=== PATIENT | female | born 1985 | race Caucasian/White ===

== ENCOUNTER → 2016-12-25 | Outpatient (CLI) | payer OTHER ==
--- NOTE | 2016-12-25 14:05 | XR ---
EXAMINATION TYPE: XR cervical spine comp DATE OF EXAM: 12/25/2016 12:28 PM COMPARISON: NONE HISTORY: Cervical disc disease tingling TECHNIQUE: 5 view cervical spine FINDINGS: Minimal disc space narrowing C5-6 C6-7 and C7-T1 is present. Posterior endplate spurring is present C5-6 C6-7. Posterior spinal lamellar line is intact. Tip of the odontoid is some limitation due to overlying occiput. Foramen are patent. Prevertebral space is normal. IMPRESSION: 1. Degenerative disc changes within the lower cervical spine
== END ==
LOC: RADXRMAIN 12:08
PROVIDERS: ATTEND Physical Medicine & Rehabilitation
DX: M50.31 Other cervical disc degeneration, high cervical region (principal)
CPT/HCPCS: 72050

== ENCOUNTER 2017-04-11 18:47 | Emergency (ER) | payer OTHER ==
--- NOTE | 2017-04-11 19:35 | ED ---
Female Urogenital HPI - General Chief complaint: Vaginal Bleeding Stated complaint: vaginal bleeding Time Seen by Provider: 04/11/17 19:03 Source: patient, RN notes reviewed Mode of arrival: ambulatory Limitations: no limitations - History of Present Illness Initial comments: Patient is a 31-year-old female since emergency room for evaluation of vaginal bleeding. Patient states she had a sexual intercourse with a new partner about a week ago and afterwards began bleeding. Patient states she's had some pain in her vaginal area afterwards. Patient states she had sexual intercourse again yesterday and began bleeding. Patient states during the day today while doing laundry she had a large cruz of blood in her underwear. Patient states she's not sure if she is on her period or if she tore something in her vaginal area. Patient denies pain or burning during urination or trouble urinating. Patient states she has a history of chlamydia and gonorrhea when she was younger that was treated. Patient denies abdominal pain. Patient denies nausea or vomiting. Patient denies fevers or chills. Patient denies headache or dizziness. Patient states she is here to be checked to make sure there is nothing torn in her vaginal area. Patient denies any other symptoms or complaints. - Related Data Home Medications Medication Instructions Recorded Confirmed HYDROcodone/APAP 10-325MG [[place] 1 tab PO Q8H PRN 04/11/17 04/11/17 10-325] Allergies Allergy/AdvReac Type Severity Reaction Status Date / Time No Known Allergies Allergy Verified 04/11/17 19:15 Review of Systems ROS Statement: Those systems with pertinent positive or pertinent negative responses have been documented in the HPI. ROS Other: All systems not noted in ROS Statement are negative. Past Medical History Additional Past Medical History / Comment(s): Patient has a history of low back pain which she takes [place] for. For her obstetrical history she's had 7 pregnancies. The first 4 pregnancies were normal vaginal deliveries. The fifth was a 17 week demise. The sixth was a missed with a D&C. This is her seventh . The patient has had good care with me since 10 weeks gestation. She has been on Lortab were [place] since the beginning of her . She has been told several times to come off this medication and has not. Her blood work is blood type B positive, HIV nonreactive, rubella immune, hepatitis B negative, RPR nonreactive. She had a normal anatomy ultrasound at 19 weeks. She is GBS negative. History of Any Multi-Drug Resistant Organisms: None Reported Past Surgical History: Appendectomy, Cholecystectomy Additional Past Surgical History / Comment(s): She's had a cholecystectomy, appendectomy, and a D&C. Past Anesthesia/Blood Transfusion Reactions: No Reported Reaction Past Psychological History: No Psychological Hx Reported Smoking Status: Current every day smoker Past Alcohol Use History: None Reported Past Drug Use History: Opiates - Past Family History Father Family Medical History: Cancer, Hypertension, Liver Disease, Prostate Disorder Mother Family Medical History: Deep Vein Thrombosis (DVT), Fibromyalgia, Rheumatoid Arthritis (RA) General Exam - General Exam Comments Initial Comments: Sitting in exam room, no distress. Limitations: no limitations General appearance: alert, in no apparent distress Head exam: Present: atraumatic, normocephalic, normal inspection Eye exam: Present: normal appearance ENT exam: Present: normal exam Neck exam: Present: normal inspection Respiratory exam: Present: normal lung sounds bilaterally. Absent: respiratory distress Cardiovascular Exam: Present: regular rate, normal rhythm, normal heart sounds GI/Abdominal exam: Present: soft, normal bowel sounds. Absent: distended, tenderness, guarding, rebound, rigid External exam: Present: normal external exam Speculum exam: Present: vaginal bleeding (from cervix). Absent: laceration By manual exam: Present: normal by manual exam Extremities exam: Present: normal inspection Back exam: Present: normal inspection Neurological exam: Present: alert, oriented X3, CN II-XII intact, normal gait Psychiatric exam: Present: normal affect, normal mood Skin exam: Present: warm, dry, intact, normal color. Absent: rash Course Vital Signs 04/11/17 04/11/17 18:53 20:57 Temperature 98.1 F 98 F Pulse Rate 90 70 Respiratory 20 16 Rate Blood Pressure 136/77 119/61 O2 Sat by Pulse 99 97 Oximetry Medical Decision Making - Medical Decision Making Patient is a 31-year-old female presents to the emergency room for evaluation of vaginal bleeding. No tears noted during pelvic exam. There was blood noted from the cervical os. It appears patient is menstruating. test negative. Patient advised to follow-up with [facility]. Patient refused STD testing. Return parameters discussed. Case discussed Dr. Bundy. - Lab Data Lab Results 04/11/17 04/11/17 Range/Units 20:12 20:12 Urine Color Yellow Urine Appearance Clear (Clear) Urine pH 7.0 (5.0-8.0) Ur Specific [place] 1.028 (1.001-1.035) Urine Protein 1+ H (Negative) Urine Glucose (UA) Negative (Negative) Urine Ketones Trace H (Negative) Urine Blood Moderate H (Negative) Urine Nitrite Negative (Negative) Urine Bilirubin Negative (Negative) Urine Urobilinogen 3.0 (<2.0) mg/dL Ur Leukocyte Esterase Negative (Negative) Urine RBC 147 H (0-5) /hpf Ur Squamous Epith Cells 4 (0-4) /hpf Urine Mucus Occasional H (None) /hpf Urine HCG, Qual Not Detected (Not Detectd) Disposition Clinical Impression: Normal menstrual period Disposition: HOME SELF-CARE Condition: Good Instructions: Menstruation (ED) Additional Instructions: Please follow up with primary care provider or [facility] in 1-2 days. If any new symptom arises or symptoms worsen, return to ER as soon as possible. Referrals: None,Stated [Primary Care Provider] - 1-2 days Time of Disposition: 20:47
[2017-04-11 20:26] LABS: Appearance,Urine Clear (Clear); Bilirubin,Urine Negative (Negative); Glucose,Urine (UA) Negative (Negative); Ketones,Urine Trace (Negative); Leukocyte Esterase,Urine Negative (Negative); Mucus,Urine Occasional /hpf; Nitrite,Urine Negative (Negative); Particle Count 6377; Protein,Urine 1+ (Negative); RBC,Urine 147 /hpf (0-5); Specific Gravity,Urine 1.028 (1.001-1.035); Squamous Epithelial Cell,Urine 4 /hpf (0-4); UA Billing (MACRO vs. MICRO) MICRO
[2017-04-11 20:58] VITALS: BP 119/61; PULSE 70; RESP 16; TEMP 98
== END 2017-04-11 21:00 | disposition home or self-care (01) ==
LOC: EC 18:47
DX: N93.8 Other specified abnormal uterine and vaginal bleeding (principal); F17.200 Nicotine dependence, unspecified, uncomplicated; Z32.02 Encounter for pregnancy test, result negative; Z90.49 Acquired absence of other specified parts of digestive tract
CPT/HCPCS: 81001; 81025; 87086; 99283

== ENCOUNTER 2022-07-09 20:28 | Emergency (ER) | payer OTHER ==
[2022-07-09] MEDS ORDERED: SODIUM CHLORIDE 0.9% 1,000 ML IV STA (21:22)
--- NOTE | 2022-07-09 21:22 | ED ---
General Adult HPI - General Source: patient, RN notes reviewed Mode of arrival: ambulatory Limitations: no limitations <Dianelys Anne - Last Filed: 07/09/22 23:02> <Faustino Levy - Last Filed: 07/09/22 23:36> - General Chief complaint: Abdominal Pain Stated complaint: IBS flare/blood Time Seen by Provider: 07/09/22 21:05 - History of Present Illness Initial comments: Patient is a 37 year old female presenting to the emergency room with multiple complaints that initially began as pain in her right lower quadrant radiating posteriorly into the flank consistent with previous IBS flares. She r eports that she took a dose of Imodium and her rectal/anal spasms resolved with medication but her pain persisted. She reports that since that time the pain has progressed to be disuse throughout her entire abdomen including the upper abdomen with some associated nausea and vomiting. She reports one episode of bilious emesis with a clot-like substance but no further episodes of bloody emesis or coffee-ground emesis. She is complaining of a dual-lead menstrual cycle by 6 days and reports that today she began having dark brown discharged with tissue-like substances that time. She denies any concerns for STDs. She denies any chest pain, shortness of breath, dysuria, urinary frequency, headaches, dizziness, fevers or chills. She is past medical history in addition to her mixed IBS of chronic back pain, and fibromyalgia. (Dianelys Anne) - Related Data Home Medications Medication Instructions Recorded Confirmed HYDROcodone/APAP 10-325MG [[place] 1 tab PO Q8H PRN 04/11/17 04/11/17 10-325] Allergies Allergy/AdvReac Type Severity Reaction Status Date / Time No Known Allergies Allergy Verified 07/09/22 20:53 Review of Systems ROS Other: All systems not noted in ROS Statement are negative. <Dianelys Anne - Last Filed: 07/09/22 23:02> ROS Other: All systems not noted in ROS Statement are negative. <Faustino Levy - Last Filed: 07/09/22 23:36> ROS Statement: Those systems with pertinent positive or pertinent negative responses have been documented in the HPI. Past Medical History History of Any Multi-Drug Resistant Organisms: None Reported Past Surgical History: Appendectomy, Cholecystectomy Additional Past Surgical History / Comment(s): She's had a cholecystectomy, appendectomy, and a D&C. Past Anesthesia/Blood Transfusion Reactions: No Reported Reaction Past Psychological History: No Psychological Hx Reported Smoking Status: Current every day smoker Past Alcohol Use History: None Reported Past Drug Use History: Opiates - Past Family History Father Family Medical History: Cancer, Hypertension, Liver Disease, Prostate Disorder Mother Family Medical History: Deep Vein Thrombosis (DVT), Fibromyalgia, Rheumatoid Arthritis (RA) <Dianelys Anne - Last Filed: 07/09/22 23:02> General Exam General appearance: alert, in no apparent distress Head exam: Present: atraumatic, normocephalic, normal inspection Eye exam: Present: normal appearance, PERRL, EOMI. Absent: scleral icterus, conjunctival injection, periorbital swelling ENT exam: Present: normal exam, mucous membranes moist Neck exam: Present: normal inspection, full ROM. Absent: lymphadenopathy Respiratory exam: Present: normal lung sounds bilaterally. Absent: respiratory distress, wheezes, rales, rhonchi, stridor Cardiovascular Exam: Present: regular rate, normal rhythm, normal heart sounds. Absent: systolic murmur, diastolic murmur, rubs, gallop, clicks GI/Abdominal exam: Present: soft, tenderness (mild diffuse), normal bowel sounds. Absent: distended, guarding, rebound, rigid Rectal exam: Present: deferred Extremities exam: Present: normal inspection, full ROM. Absent: pedal edema, joint swelling Back exam: Present: normal inspection, full ROM. Absent: CVA tenderness (R), CVA tenderness (L) Neurological exam: Present: alert, oriented X3, CN II-XII intact Psychiatric exam: Present: normal affect, normal mood Skin exam: Present: warm, dry, intact, normal color. Absent: rash <Dianelys Anne - Last Filed: 07/09/22 23:02> General appearance: alert, in no apparent distress Head exam: Present: atraumatic, normocephalic, normal inspection Eye exam: Present: normal appearance, PERRL, EOMI. Absent: scleral icterus, conjunctival injection, periorbital swelling ENT exam: Present: normal exam, mucous membranes moist Neck exam: Present: normal inspection. Absent: tenderness, meningismus, lymphadenopathy Respiratory exam: Present: normal lung sounds bilaterally. Absent: respiratory distress, wheezes, rales, rhonchi, stridor Cardiovascular Exam: Present: regular rate, normal rhythm, normal heart sounds. Absent: systolic murmur, diastolic murmur, rubs, gallop, clicks GI/Abdominal exam: Present: soft, normal bowel sounds. Absent: distended, tenderness, guarding, rebound, rigid Extremities exam: Present: normal inspection, full ROM, normal capillary refill. Absent: tenderness, pedal edema, joint swelling, calf tenderness Back exam: Present: normal inspection Neurological exam: Present: alert, oriented X3, CN II-XII intact Psychiatric exam: Present: normal affect, normal mood Skin exam: Present: warm, dry, intact, normal color. Absent: rash <Faustino Levy - Last Filed: 07/09/22 23:36> Course <Faustino Levy - Last Filed: 07/09/22 23:36> Vital Signs 07/09/22 20:49 Temperature 98.2 F Pulse Rate 93 Respiratory 20 Rate Blood Pressure 180/112 O2 Sat by Pulse 100 Oximetry - Reevaluation(s) Reevaluation #1: 07/09/22 23:35 medical records reviewed (Faustino Levy) Reevaluation #2: 07/09/22 23:35 Patient informed results questions answered (Faustino Levy) Reevaluation #3: 07/09/22 23:35 Pain is resolved (Faustino Levy) Medical Decision Making - Lab Data Result diagrams: 07/09/22 21:25 07/09/22 21:25 <Dianelys Anne - Last Filed: 07/09/22 23:02> - Lab Data Result diagrams: 07/09/22 21:25 07/09/22 21:25 - Radiology Data Radiology results: report reviewed (CT of the abdomen and pelvis negative for acute disease), image reviewed <Faustino Levy - Last Filed: 07/09/22 23:36> - Medical Decision Making 37-year-old female presenting to the emergency room with complaints of upper and lower abdominal pain along with emesis and dysmenorrhea with missed menstrual cycle and now with dark discharge. Will obtain CBC, CMP, amylase lipase along with test and urinalysis. Will give IV fluid bolus and if test negative will obtain CT of the abdomen and pelvis. Labs reveal slightly elevated alk phos and marginally elevated leukocytosis. Urinalysis with significant amount of blood causing false results regarding urinary tract infection. Awaiting computed tomography scan. Report given to Dr. Ruiz for further evaluation and dispo. (Dianelys Anne) 37 female nonspecific abdominal pain. Patient can be discharged home, no acute cause of abdominal noted. (Faustino Levy) - Lab Data Lab Results 07/09/22 07/09/22 07/09/22 Range/Units 21:25 21:25 21:25 WBC 11.2 H (3.8-10.6) k/uL RBC 4.40 (3.80-5.40) m/uL Hgb 12.8 (11.4-16.0) gm/dL Hct 37.6 (34.0-46.0) % MCV 85.5 (80.0-100.0) fL MCH 29.1 (25.0-35.0) pg MCHC 34.0 (31.0-37.0) g/dL RDW 13.3 (11.5-15.5) % Plt Count 330 (150-450) k/uL MPV 7.1 Neutrophils % 68 % Lymphocytes % 25 % Monocytes % 4 % Eosinophils % 2 % Basophils % 0 % Neutrophils # 7.6 (1.3-7.7) k/uL Lymphocytes # 2.8 (1.0-4.8) k/uL Monocytes # 0.5 (0-1.0) k/uL Eosinophils # 0.2 (0-0.7) k/uL Basophils # 0.1 (0-0.2) k/uL Sodium 139 (137-145) mmol/L Potassium 3.5 (3.5-5.1) mmol/L Chloride 104 (98-107) mmol/L Carbon Dioxide 23 (22-30) mmol/L Anion Gap 12 mmol/L BUN 12 (7-17) mg/dL Creatinine 0.99 (0.52-1.04) mg/dL Est GFR (CKD-EPI)AfAm 83 (>60 ml/min/1.73 sqM) Est GFR (CKD-EPI)NonAf 72 (>60 ml/min/1.73 sqM) Glucose 106 H (74-99) mg/dL Calcium 9.7 (8.4-10.2) mg/dL Total Bilirubin 0.5 (0.2-1.3) mg/dL AST 16 (14-36) U/L ALT 17 (4-34) U/L Alkaline Phosphatase 132 H (38-126) U/L Total Protein 8.0 (6.3-8.2) g/dL Albumin 4.8 (3.5-5.0) g/dL Amylase 65 (30-110) U/L Lipase 67 (23-300) U/L HCG, Qual Not Detected Urine Color Urine Appearance (Clear) Urine pH (5.0-8.0) Ur Specific [place] (1.001-1.035) Urine Protein (Negative) Urine Glucose (UA) (Negative) Urine Ketones (Negative) Urine Blood (Negative) Urine Nitrite (Negative) Urine Bilirubin (Negative) Urine Urobilinogen (<2.0) mg/dL Ur Leukocyte Esterase (Negative) Urine RBC (0-5) /hpf Urine WBC (0-5) /hpf Ur Squamous Epith Cells (0-4) /hpf Urine Bacteria (None) /hpf Urine Mucus (None) /hpf 07/09/22 Range/Units 21:55 WBC (3.8-10.6) k/uL RBC (3.80-5.40) m/uL Hgb (11.4-16.0) gm/dL Hct (34.0-46.0) % MCV (80.0-100.0) fL MCH (25.0-35.0) pg MCHC (31.0-37.0) g/dL RDW (11.5-15.5) % Plt Count (150-450) k/uL MPV Neutrophils % % Lymphocytes % % Monocytes % % Eosinophils % % Basophils % % Neutrophils # (1.3-7.7) k/uL Lymphocytes # (1.0-4.8) k/uL Monocytes # (0-1.0) k/uL Eosinophils # (0-0.7) k/uL Basophils # (0-0.2) k/uL Sodium (137-145) mmol/L Potassium (3.5-5.1) mmol/L Chloride (98-107) mmol/L Carbon Dioxide (22-30) mmol/L Anion Gap mmol/L BUN (7-17) mg/dL Creatinine (0.52-1.04) mg/dL Est GFR (CKD-EPI)AfAm (>60 ml/min/1.73 sqM) Est GFR (CKD-EPI)NonAf (>60 ml/min/1.73 sqM) Glucose (74-99) mg/dL Calcium (8.4-10.2) mg/dL Total Bilirubin (0.2-1.3) mg/dL AST (14-36) U/L ALT (4-34) U/L Alkaline Phosphatase (38-126) U/L Total Protein (6.3-8.2) g/dL Albumin (3.5-5.0) g/dL Amylase (30-110) U/L Lipase (23-300) U/L HCG, Qual Urine Color Yellow Urine Appearance Cloudy H (Clear) Urine pH 5.5 (5.0-8.0) Ur Specific [place] 1.026 (1.001-1.035) Urine Protein 1+ H (Negative) Urine Glucose (UA) Negative (Negative) Urine Ketones Negative (Negative) Urine Blood Large H (Negative) Urine Nitrite Negative (Negative) Urine Bilirubin Negative (Negative) Urine Urobilinogen <2.0 (<2.0) mg/dL Ur Leukocyte Esterase Large H (Negative) Urine RBC 24 H (0-5) /hpf Urine WBC 60 H (0-5) /hpf Ur Squamous Epith Cells 6 H (0-4) /hpf Urine Bacteria Rare H (None) /hpf Urine Mucus Few H (None) /hpf Disposition <Dianelys Anne - Last Filed: 07/09/22 23:02> Is patient prescribed a controlled substance at d/c from ED?: No Time of Disposition: 23:35 <Faustino Levy - Last Filed: 07/09/22 23:36> Clinical Impression: Abdominal pain Disposition: HOME SELF-CARE Condition: Fair Instructions (If sedation given, give patient instructions): Abdominal Pain (ED) Referrals: None,Stated [Primary Care Provider] - 1-2 days
[2022-07-09 21:35] LABS: Basophils # (A) 0.1 k/uL (0-0.2); Basophils % (A) 0 %; Eosinophils # (A) 0.2 k/uL (0-0.7); Eosinophils % (A) 2 %; HCT 37.6 % (34.0-46.0); HGB 12.8 gm/dL (11.4-16.0); Lymphocytes # (A) 2.8 k/uL (1.0-4.8); Lymphocytes % (A) 25 %; MCH 29.1 pg (25.0-35.0); MCV 85.5 fL (80.0-100.0); Mean Platelet Volume 7.1; Monocytes # (A) 0.5 k/uL (0-1.0); Monocytes % (A) 4 %; Neutrophils # (A) 7.6 k/uL (1.3-7.7); Neutrophils % (A) 68 %; Platelet Count 330 k/uL (150-450); RDW 13.3 % (11.5-15.5); WBC 11.2 k/uL (3.8-10.6)
[2022-07-09 21:56] LABS: Albumin 4.8 g/dL (3.5-5.0); Calcium 9.7 mg/dL (8.4-10.2); Potassium 3.5 mmol/L (3.5-5.1); Total Bilirubin 0.5 mg/dL (0.2-1.3)
[2022-07-09 22:19] LABS: Appearance,Urine Cloudy (Clear); Bacteria,Urine Rare /hpf; Bilirubin,Urine Negative (Negative); Blood,Urine Large (Negative); Color,Urine Yellow; Glucose,Urine (UA) Negative (Negative); Ketones,Urine Negative (Negative); Leukocyte Esterase,Urine Large (Negative); Mucus,Urine Few /hpf; Nitrite,Urine Negative (Negative); PH, Urine 5.5 (5.0-8.0); Protein,Urine 1+ (Negative); RBC,Urine 24 /hpf (0-5); Specific Gravity,Urine 1.026 (1.001-1.035); Squamous Epithelial Cell,Urine 6 /hpf (0-4); Urobilinogen,Urine <2.0 mg/dL (<2.0); WBC,Urine 60 /hpf (0-5)
--- NOTE | 2022-07-09 23:12 | CT ---
EXAMINATION TYPE: CT abdomen pelvis wo con DATE OF EXAM: 07/09/2022 COMPARISON: 08/30/2012 HISTORY: Abdominal pain CT DLP: 793.4 mGycm Automated exposure control for dose reduction was used. Images obtained from the diaphragm to the floor the pelvis with no contrast. There is minimal subsegmental atelectasis right lung base. Heart size is normal. No pericardial effus ion. No pleural effusion. There are clips from cholecystectomy. Liver and spleen are intact. No evide nce of pancreatic mass. The stomach is intact. There is no adrenal mass. Kidneys show normal size and contour. No hydronephrosis. Ureters are not di lated. No retroperitoneal adenopathy. There is 3 x 2 cm fat-containing umbilical hernia. The bladder distends smoothly. No inguinal hernia. Uterus is intact. No evidence of a pelvic mass. Uterus retrove rted. Appendix is not seen. No sign thickened appendix. Small bowel pattern is normal. Terminal ileum appears normal. There is no mesenteric edema. No ascites or free air. No sign of a bowel obstruction . There is vacuum disc at L4-5 and L5-S1. Lumbar vertebrae have normal alignment. No compression fractu re. The bony pelvis is intact. The hip joints are intact. IMPRESSION: No acute abnormality in the abdomen pelvis. Appendix not seen. Minimal subsegmental atelectasis right lung base. No adverse change compared to old exam.
[2022-07-09 23:39] VITALS: BP 145/85; PULSE 68; RESP 16; TEMP 98.1
== END 2022-07-09 23:58 | disposition home or self-care (01) ==
LOC: EC 20:28
DX: K58.1 Irritable bowel syndrome with constipation (principal); F17.200 Nicotine dependence, unspecified, uncomplicated
CPT/HCPCS: 36415; 74176; 80053; 81001; 82150; 83690; 84703; 85025; 87086; 96360; 96361; 99284

== ENCOUNTER 2024-04-27 11:29 | Emergency (ER) | payer OTHER ==
--- NOTE | 2024-05-27 18:33 | US ---
Patient Ceci Ramirez ID [id number] Order # EXAMINATION TYPE: US pelvic complete DATE OF EXAM: 04/27/2024 COMPARISON: No comparison available on downtime PACS. CLINICAL INDICATION: Bleeding following intercourse TECHNIQUE: Transvaginal (TV). Date of LMP: EXAM MEASUREMENTS: Uterus: 8.1 x 5.3 x 5.8 cm Endometrial Stripe: 0.398 cm Right Ovary: 4.0 x 1.8 x 3.9 cm follicles are present. Left Ovary: 3.8 x 2.3. Follicles are present. 1. Uterus: Normal nabothian cysts within the cervix. 2. Endometrium: Normal 3. Right Ovary: Normal 4. Left Ovary: Normal Spectral, color and waveform doppler imaging shows good arterial and venous flow within the ovaries ; there is no evidence for ovarian torsion. 5. Bilateral Adnexa: Some mild hydrosalpinx may be present bilaterally. Structures are hypoechoic po sterior to the uterus and adnexa 6. Posterior cul-de-sac: No free fluid IMPRESSION: 1. Some hydrosalpinx may be present. Pelvic ultrasound otherwise appears unremarkable.
== END 2024-04-27 16:20 | disposition home or self-care (01) ==
LOC: EC 11:29 → EDSTATUS 11:48 → EC 16:20
DX: N93.9 Abnormal uterine and vaginal bleeding, unspecified (principal)
CPT/HCPCS: 76830; 93975; 99284

== ENCOUNTER 2024-12-19 08:08 | Emergency (ER) | payer OTHER ==
[2024-12-19 08:15] VITALS: BP 135/89; PULSE 89; RESP 18; TEMP 97.8
--- NOTE | 2024-12-19 08:36 | ED ---
Abdominal Pain HPI - General Chief Complaint: Urogenital Stated Complaint: abd/low back pain Time Seen by Provider: 12/19/24 08:16 Source: patient, RN notes reviewed Mode of arrival: ambulatory Limitations: no limitations - History of Present Illness Initial Comments: This is a 39-year-old female who presents to the emergency department for back pain and abdominal pain. Patient states that a month ago she had pain and pressure in her lower back and lower abdomen. She went to urgent care and was diagnosed with a UTI. States that she finished the antibiotics and symptoms seemed to improve. However, when she started her period the symptoms returned and have been present since. States that this is more of an intermittent discomfort and pressure than stephan pain. Denies any nausea/vomiting or urinary symptoms. Denies any fevers/chills. MD Complaint: abdominal pain - Related Data Previous Rx's Medication Instructions Recorded Ibuprofen [Motrin] 800 mg PO Q8H PRN #30 tab 12/19/24 Allergies Allergy/AdvReac Type Severity Reaction Status Date / Time No Known Allergies Allergy Verified 12/19/24 10:08 Review of Systems ROS Statement: Those systems with pertinent positive or pertinent negative responses have been documented in the HPI. ROS Other: All systems not noted in ROS Statement are negative. Past Medical History Additional Past Medical History / Comment(s): Patient has a history of low back pain which she takes [place] for. For her obstetrical history she's had 7 pregnancies. The first 4 pregnancies were normal vaginal deliveries. The fifth was a 17 week demise. The sixth was a missed with a D&C. This is her seventh . The patient has had good care with me since 10 weeks gestation. She has been on Lortab were [place] since the beginning of her . She has been told several times to come off this medication and has not. Her blood work is blood type B positive, HIV nonreactive, rubella immune, hepatitis B negative, RPR nonreactive. She had a normal anatomy ultrasound at 19 weeks. She is GBS negative. History of Any Multi-Drug Resistant Organisms: None Reported Past Surgical History: Appendectomy, Cholecystectomy Additional Past Surgical History / Comment(s): She's had a cholecystectomy, appendectomy, and a D&C. Past Anesthesia/Blood Transfusion Reactions: No Reported Reaction Past Psychological History: No Psychological Hx Reported Smoking Status: Current every day smoker Past Alcohol Use History: None Reported Past Drug Use History: Opiates - Past Family History Father Family Medical History: Cancer, Hypertension, Liver Disease, Prostate Disorder Mother Family Medical History: Deep Vein Thrombosis (DVT), Fibromyalgia, Rheumatoid Arthritis (RA) General Exam Limitations: no limitations General appearance: alert, in no apparent distress Head exam: Present: atraumatic, normocephalic, normal inspection Respiratory exam: Present: normal lung sounds bilaterally. Absent: respiratory distress, wheezes, rales, rhonchi, stridor Cardiovascular Exam: Present: regular rate, normal rhythm GI/Abdominal exam: Present: soft, normal bowel sounds. Absent: distended, tenderness, guarding, rebound, rigid Back exam: Absent: tenderness Neurological exam: Present: alert, oriented X3, CN II-XII intact Psychiatric exam: Present: normal affect, normal mood Skin exam: Present: warm, dry, intact, normal color. Absent: rash Course Vital Signs 12/19/24 08:12 Temperature 97.8 F Pulse Rate 89 Respiratory 18 Rate Blood Pressure 135/89 O2 Sat by Pulse 100 Oximetry Medical Decision Making - Medical Decision Making This is a 39 year old female who presents to the emergency department for back pain and abdominal pain. Was pt. sent in by a medical professional or institution? @ -No Did you speak to anyone other than the patient for history? @ -No Did you review nursing and triage notes? @ -Yes, and I agree, it is accurate with regards to the patient's symptoms. Were old charts reviewed? @ -No Differential Diagnosis? @ -Differential Back Pain: Strain, zoster, cauda equina syndrome, epidural abscess, vertebral osteomyeliti s, discitis, fracture, subluxation, disc herniation, DJD, spinal stenosis, dissection, AAA, pancreatitis, peptic ulcer disease, pyelonephritis, kidney stone, this is not meant to be an all-inclusive list. EKG interpreted by me (3pts min.)? @ -Not obtained X-rays interpreted by me (1pt min.)? @ -Not obtained CT interpreted by me (1pt min.)? @ -CT scan of the abdomen and pelvis obtained. My interpretation identifies no bowel wall thickening or free air. U/S interpreted by me (1pt. min.)? @ -Transvaginal ultrasound obtained. My interpretation identifies no ovarian torsion. What testing was considered but not performed? (CT, X-rays, U/S, labs)? Why? @ -None What meds were considered but not given? Why? @ -None Did you discuss the management of the patient with other professionals? @ -No Did you reconcile home meds? @ -No Was smoking cessation discussed for >3mins.? @ -I discussed smoking cessation for greater than 3 minutes. The risk of smoking were discussed with the patient including but not limited to risks of cancer, stroke, coronary artery disease and COPD. Also discussed with patient were multiple methods of quitting smoking. Lastly we discussed the financial cost of smoking. Was critical care preformed (if so, how long)? @ -No Were there social determinants of health that impacted care today? How? (Homelessness, low income, unemployed, alcoholism, drug addiction, transportation, low edu. Level, literacy, decrease access to med. care, long-term, rehab)? @ -No Was there de-escalation of care discussed even if they declined? (Discuss DNR or withdrawal of care, Hospice)? @ -No What co-morbidities impacted this encounter? (DM, HTN, Smoking, COPD, CAD, Cancer, CVA, Hep., AIDS, mental health diagnosis, sleep apnea, morbid obesity)? @ -Smoking Was patient admitted / discharged? @ -Discharged. Lab work unremarkable. Urinalysis contaminated but not suggestive of infection. CT scan of the abdomen and pelvis demonstrates a bulky uterus with 2 cysts on the left ovary. Additional workup with ultrasound is re commended. Transvaginal ultrasound obtained demonstrating a left ovarian cyst with some internal debris possibly representing an involuting follicle/hemorrhagic follicle. Findings reviewed with the patient. Advised that she needs to follow-up with [facility] and information for follow-up was provided. Ibuprofen prescribed for pain control. Patient discharged home in stable condition. Case discussed with ED attending Dr. Penny. Return precautions reviewed in depth, the patient is instructed to return to the emergency department with any new, worsening, or concerning symptoms. Patient verbalized understanding. Undiagnosed new problem with uncertain prognosis? @ -None Drug Therapy requiring intensive monitoring for toxicity (Heparin, Nitro, Insuli n, Cardizem)? @ -None Were any procedures done? @ -None Diagnosis/symptom? @ -Abdominal pain, back pain, left sided ovarian cysts Acute, or Chronic, or Acute on Chronic? @ -Acute Uncomplicated (without systemic symptoms) or Complicated (systemic symptoms)? @ -Uncomplicated Side effects of treatment? @ -None Exacerbation, Progression, or Severe Exacerbation] @ -Not applicable Poses a threat to life or bodily function? @ -No - Lab Data Result diagrams: 12/19/24 08:39 12/19/24 08:39 Lab Results 12/19/24 12/19/24 12/19/24 Range/Units 08:39 08:39 08:39 WBC 9.70 (4.50-10.00) 10*3/uL RBC 4.74 (4.10-5.20) 10*6/uL Hgb 13.8 (12.0-15.0) g/dL Hct 40.9 (37.2-46.3) % MCV 86.3 (80.0-97.0) fL MCH 29.1 (27.0-32.0) pg MCHC 33.7 (32.0-37.0) g/dL Plt Count 291 (140-440) 10*3/uL MPV 8.8 L (9.5-12.2) fL Immature Gran % (Auto) 0.6 % Neutrophils % 59.9 % Lymphocytes % 29.7 % Monocytes % 6.8 % Eosinophils % 2.6 % Basophils % 0.4 % Immature Gran # 0.06 H (0.00-0.04) 10*3/uL Neutrophils # 5.81 (1.80-7.70) 10*3/uL Lymphocytes # 2.88 (0.90-5.00) 10*3/uL Monocytes # 0.66 (0.20-1.00) 10*3/uL Eosinophils # 0.25 (0.04-0.35) 10*3/uL Basophils # 0.04 (0.00-0.10) 10*3/uL Sodium 136 L (137-145) mmol/L Potassium 4.3 (3.5-5.1) mmol/L Chloride 101 (98-107) mmol/L Carbon Dioxide 29 (22-30) mmol/L Anion Gap 6 mmol/L BUN 14 (7-17) mg/dL Creatinine 0.85 (0.52-1.04) mg/dL Est GFR (CKD-EPI)AfAm >90 (>60 ml/min/1.73 sqM) Est GFR (CKD-EPI)NonAf 86 (>60 ml/min/1.73 sqM) Glucose 107 H (74-99) mg/dL Plasma Lactic Acid William 1.5 (0.7-2.0) mmol/L Calcium 9.9 (8.4-10.2) mg/dL Total Bilirubin 0.5 (0.2-1.3) mg/dL AST 25 (14-36) U/L ALT 40 H (4-34) U/L Alkaline Phosphatase 118 (38-126) U/L Total Protein 7.8 (6.3-8.2) g/dL Albumin 4.6 (3.5-5.0) g/dL HCG, Qual Not Detected Urine Color Urine Appearance (Clear) Urine pH (5.0-8.0) Ur Specific [place] (1.001-1.035) Urine Protein (Negative) Urine Glucose (UA) (Negative) Urine Ketones (Negative) Urine Blood (Negative) Urine Nitrite (Negative) Urine Bilirubin (Negative) Urine Urobilinogen (<2.0) mg/dL Ur Leukocyte Esterase (Negative) Urine RBC (0-5) /hpf Urine WBC (0-5) /hpf Ur Squamous Epith Cells (0-4) /hpf Urine Mucus (None) /hpf 12/19/24 Range/Units 09:18 WBC (4.50-10.00) 10*3/uL RBC (4.10-5.20) 10*6/uL Hgb (12.0-15.0) g/dL Hct (37.2-46.3) % MCV (80.0-97.0) fL MCH (27.0-32.0) pg MCHC (32.0-37.0) g/dL Plt Count (140-440) 10*3/uL MPV (9.5-12.2) fL Immature Gran % (Auto) % Neutrophils % % Lymphocytes % % Monocytes % % Eosinophils % % Basophils % % Immature Gran # (0.00-0.04) 10*3/uL Neutrophils # (1.80-7.70) 10*3/uL Lymphocytes # (0.90-5.00) 10*3/uL Monocytes # (0.20-1.00) 10*3/uL Eosinophils # (0.04-0.35) 10*3/uL Basophils # (0.00-0.10) 10*3/uL Sodium (137-145) mmol/L Potassium (3.5-5.1) mmol/L Chloride (98-107) mmol/L Carbon Dioxide (22-30) mmol/L Anion Gap mmol/L BUN (7-17) mg/dL Creatinine (0.52-1.04) mg/dL Est GFR (CKD-EPI)AfAm (>60 ml/min/1.73 sqM) Est GFR (CKD-EPI)NonAf (>60 ml/min/1.73 sqM) Glucose (74-99) mg/dL Plasma Lactic Acid William (0.7-2.0) mmol/L Calcium (8.4-10.2) mg/dL Total Bilirubin (0.2-1.3) mg/dL AST (14-36) U/L ALT (4-34) U/L Alkaline Phosphatase (38-126) U/L Total Protein (6.3-8.2) g/dL Albumin (3.5-5.0) g/dL HCG, Qual Urine Color Yellow Urine Appearance Cloudy H (Clear) Urine pH 6.0 (5.0-8.0) Ur Specific [place] 1.020 (1.001-1.035) Urine Protein Negative (Negative) Urine Glucose (UA) Negative (Negative) Urine Ketones Negative (Negative) Urine Blood Negative (Negative) Urine Nitrite Negative (Negative) Urine Bilirubin Negative (Negative) Urine Urobilinogen <2.0 (<2.0) mg/dL Ur Leukocyte Esterase Moderate H (Negative) Urine RBC 2 (0-5) /hpf Urine WBC 6 H (0-5) /hpf Ur Squamous Epith Cells 12 H (0-4) /hpf Urine Mucus Occasional H (None) /hpf - Radiology Data Radiology results: report reviewed, image reviewed Disposition Clinical Impression: Ovarian cyst, Back pain, Abdominal pain, Nicotine dependence Disposition: HOME SELF-CARE Instructions (If sedation given, give patient instructions): Ovarian Cyst (ED) Additional Instructions: Return to the emergency department with any new, worsening, or concerning symptoms. Alternate with ibuprofen and Tylenol as needed for pain relief. Contact the [facility] listed below for a follow-up appointment. Follow up with your primary care provider in 1-2 days. Prescriptions: Ibuprofen [Motrin] 800 mg PO Q8H PRN #30 tab PRN Reason: Pain Is patient prescribed a controlled substance at d/c from ED?: No Referrals: [facility] [NON-STAFF] - 1-2 days (Contact a primary care office to become established with a provider. ) None,Stated [Primary Care Provider] - 1-2 days Rachana Sutton DO [Doctor of Osteopathic Medicine] - 1-2 days Forms: Area PCPs Time of Disposition: 11:51
[2024-12-19] MEDS: SODIUM CHLORIDE 0.9% 1,000 ML IV ONE (08:38)
[2024-12-19 09:02] LABS: Basophils # (A) 0.04 10*3/uL (0.00-0.10); Basophils % (A) 0.4 %; Eosinophils # (A) 0.25 10*3/uL (0.04-0.35); Eosinophils % (A) 2.6 %; HCT 40.9 % (37.2-46.3); HGB 13.8 g/dL (12.0-15.0); Lymphocytes # (A) 2.88 10*3/uL (0.90-5.00); Lymphocytes % (A) 29.7 %; MCH 29.1 pg (27.0-32.0); MCHC 33.7 g/dL (32.0-37.0); MCV 86.3 fL (80.0-97.0); Mean Platelet Volume 8.8 fL (9.5-12.2); Monocytes # (A) 0.66 10*3/uL (0.20-1.00); Monocytes % (A) 6.8 %; Neutrophils # (A) 5.81 10*3/uL (1.80-7.70); Neutrophils % (A) 59.9 %; Platelet Count 291 10*3/uL (140-440); RBC 4.74 10*6/uL (4.10-5.20); RDW 13.2 % (11.5-14.5)
[2024-12-19 09:16] LABS: HCG,Qualitative Serum Not Detected
[2024-12-19 09:18] LABS: ALT 40 U/L (4-34); AST 25 U/L (14-36); African American GFR (CKD) >90 (>60 ml/min/1.73 sqM); Albumin 4.6 g/dL (3.5-5.0); Alkaline Phosphatase 118 U/L (38-126); Anion Gap 6 mmol/L; Blood Urea Nitrogen 14 mg/dL (7-17); Calcium 9.9 mg/dL (8.4-10.2); Carbon Dioxide 29 mmol/L (22-30); Chloride 101 mmol/L (98-107); Glucose 107 mg/dL (74-99); Non-African American GFR(CKD) 86 (>60 ml/min/1.73 sqM); Potassium 4.3 mmol/L (3.5-5.1); Sodium 136 mmol/L (137-145); Total Bilirubin 0.5 mg/dL (0.2-1.3); Total Protein 7.8 g/dL (6.3-8.2)
[2024-12-19 09:44] LABS: Appearance,Urine Cloudy (Clear); Bilirubin,Urine Negative (Negative); Blood,Urine Negative (Negative); Color,Urine Yellow; Glucose,Urine (UA) Negative (Negative); Ketones,Urine Negative (Negative); Leukocyte Esterase,Urine Moderate (Negative); Mucus,Urine Occasional /hpf; Nitrite,Urine Negative (Negative); Protein,Urine Negative (Negative); RBC,Urine 2 /hpf (0-5); Squamous Epithelial Cell,Urine 12 /hpf (0-4); Urobilinogen,Urine <2.0 mg/dL (<2.0); WBC,Urine 6 /hpf (0-5)
--- NOTE | 2024-12-19 10:16 | CT ---
EXAMINATION TYPE: CT abdomen pelvis w con DATE OF EXAM: 12/19/2024 9:56 AM COMPARISON: 07/09/2022 CLINICAL INDICATION: Female, 39 years old with history of Lower abdominal pain, Lower abdominal pain, hx UTIs, appy, sanjay TECHNIQUE: Axial images were obtained from above the diaphragm to the pubic rami in the axial plane a t 5 mm thick sections. Reconstructed images are reviewed on the computer in the coronal plane. CONTRAST: 100 ml mL of Isovue 300. Study performed without Oral Contrast DLP: 1364.8 mGycm, Automated exposure control for dose reduction was used. FINDINGS: Limited CT sections are obtained the lung bases. The lung bases are clear. CT ABDOMEN: There is a small periumbilical mesenteric fat containing hernia with an opening of 1.2 cm . Liver: Normal Spleen: Normal Pancreas: Normal Adrenal glands: The adrenal glands are normal. Gallbladder: Surgically absent Kidneys: No masses are evident. No hydronephrosis is present. Tiny cortical renal cysts are evident on the right kidney on the delayed images Delayed images were obtained through the kidneys, which r emain unremarkable. Aorta: Vascular calcification is within the aorta. Inferior vena cava: Normal. CT PELVIS: Loops of bowel within the abdomen and pelvis are normal. There are loops of bowel which are incom pletely distended or lack oral contrast limiting their evaluation. Appendix: Not identified, surgically absent. Urinary bladder: Normal. Genitourinary structures: Uterus is somewhat bulky. There are 2 cysts on the left ovary measuring 4.2 and 4.0 cm in length. Additional workup with ultrasound is recommended. Right adnexa appears normal. Osseous structures: No suspicious lytic or sclerotic lesions. IMPRESSION: 1. 2 left ovarian cysts. Additional workup with ultrasound is recommended. [facility], , 12/19/2024 10:14 AM
--- NOTE | 2024-12-19 11:29 | US ---
EXAMINATION TYPE: US transvaginal DATE OF EXAM: 12/19/2024 COMPARISON: NONE CLINICAL INDICATION: Female, 39 years old with history of Pelvic pain, abnormal CT; TECHNIQUE: Pain follow up to ct scan. . FINDINGS: EXAM MEASUREMENTS: Uterus: 7.3 x 6.5 x 6.3 cm Endometrial Stripe: 1.7 cm Right Ovary: 4.6 x 2.2 x 3.5 cm Left Ovary: 5.8 x 4.3 x 3.7 cm 1. Uterus: Retroverted wnl 2. Endometrium: upper limits 3. Right Ovary: wnl 4. Left Ovary: Cystic area seen 4.6 x 3.6 x 3.3cm internal debris within this cyst is suggested on imaging. 5. Bilateral Adnexa: wnl 6. Posterior cul-de-sac: wnl Appropriate arterial and venous spectral waveforms to the ovaries. IMPRESSION: 1. No evidence for acute process. 2. Endometrium within normal limits for thickness. 3. Left ovarian cyst with some internal debris possibly representing involuting follicles/hemorrhagi c follicle. 4. Appropriate arterial and venous spectral waveforms to the ovaries. [facility], , 12/19/2024 11:27 AM
== END 2024-12-19 12:31 | disposition home or self-care (01) ==
LOC: EC 08:08
DX: N83.202 Unspecified ovarian cyst, left side (principal); F17.200 Nicotine dependence, unspecified, uncomplicated
CPT/HCPCS: 36415; 80053; 83605; 85025; 81001; 84703; 93975; 76830; 74177; 99406; 99284; 96360; Q9967